=== PATIENT | male | born 1980 | race Caucasian/White ===

== ENCOUNTER 2016-11-30 09:04 | Emergency (ER) | payer SELFPAY ==
--- NOTE | 2016-12-03 09:47 | ER ---
ADMIT: 11/30/2016 RM/LOC: ER [facility] MR#: [id number] [id number] SHEA PULIDO [address] [place] [address] Emergency Room Report SEX: M AGE: 36 : 1980 DATE: 11/30/2016 ADDENDUM: CHIEF COMPLAINT: Ears plugged. HISTORY OF PRESENT ILLNESS: This is a 36-year-old male who has chronic issues with his ears, the right ear showed purulent drainage from the right that have a strong smell to it. His left ear had cerumen impaction. I did flush the left ear to remove all the cerumen, but with the right ear, I did culture. I am sending him home with Cortisporin otic and having him follow up with the ENT. IMPRESSION: 1. Otitis externa of the right ear. 2. Serum impaction of the left ear. KARINA Cooley / Armani Reina MD / ciprianol JOB #: [id number] CC: Armani Reina MD, Attending Physician Lon Martinez MD, Family Physician
== END 2016-11-30 10:07 | disposition home or self-care (01) ==
LOC: ER 09:04
PROC: 3E1B38Z Irrigation of Ear using Irrigating Substance, Percutaneous Approach (ICD-10-PCS; principal; 2016-11-30)
DX: H61.22 Impacted cerumen, left ear (principal); H60.91 Unspecified otitis externa, right ear; Z88.5 Allergy status to narcotic agent